=== PATIENT | male | born 1995 | race Two or more races ===

== ENCOUNTER 2025-03-26 10:25 | Outpatient (OUT) | payer MEDICAID, SELFPAY ==
--- OUTSIDE RECORDS SUMMARY | 2023-10-06 03:00 | XMS_ITS ---
Author Organization [employer] es Address [address] [place] [address] Care Team Providers Care Grinder Set Up Operator Centerless Name Role Phone Sonu Anthony Primary Care Provider [phone] Aparna Bundy Unavailable REASON FOR VISIT FILLING Encounters Encounter Location Date Provider Diagnosis [place] [address] [place] [address] 10/06/2023 Sonu Anthony Plan Of Treatment Next Appt Details Provider Name:Carmen Samuel , 07/14/2025 08:30:00 AM, [address], [place], [address], Progress Notes * CAMERON WESTFALLDOB:1995 (29 yo M)Acc No.[id number]:10/06/2023 Patient:?CAMERON WESTFALL :?MOOKIE WeaverOB:1995???Age:28 Y ???Sex:MaleDate:4Phone:[phone]:[address], [place]-[address] Subjective: * Chief Complaints: * F ILLING Billing Information: * Procedure Codes: * Electronic signature of Sonu Anthony DDS on 03/26/2025 at 10:32 AM ESTSign off status: Pending * Provider: July Anthony DDS Date: 0 10/06/2023 Generated for Printing/Faxing/eTransmitting on:?03/26/2025 10:32 AM EST
--- OUTSIDE RECORDS SUMMARY | 2024-04-16 03:30 | XMS_ITS ---
Author Organization [facility] Address [address] [place] [address] Care Team Providers Care Vp Foundation Name Role Phone Sonu Anthony Primary Care Provider Aparna Bundy Unavailable [phone] JimmieCarmen Unavailable [phone] REASON FOR VISIT PROPHY Encounters Encounter Location Date Provider Diagnosis [facility] [address] [place] [address] 04/16/2024 Carmen Samuel Acute gingivitis, plaque induced K05.00 Assessments Encounter Date Diagnosis (ICD Code) Assessment Notes Treatment Notes Treatment Clinical Notes Section Notes 04/16/2024 Acute gingivitis, plaque induced (ICD-10 - K05.00) Plan Of Treatment Next Appt Details Provider Name:Carmen Samuel , 07/14/2025 08:30:00 AM, [address], [place], [address], Progress Notes * CAMERON WESTFALLDOB:1995 (29 yo M)Acc No.[id number]:04/16/2024 Patient:?KHOI CAMERON :?Carmen SamuelDOB:1995???Age:29 Y???Sex:Male Date:04/16/2024Phone:[phone]:[address], [place] Pcp:Sonu Anthony Subjective: * Chief Complaints: * P ROPHY Objective: * Dental Examination/Plan : * Tooth / Surface Status Description Provider Date TPPROPHYLAXIS - TLRIIXD3204/16/2024 Assessment: * Assessment: 1.?Acute gingivitis, plaque induced - K05.00 (Primary)??? * Electronic signature of Carmen Samuel on 03/26/2025 at 10:33 AM ESTSign off status: Pending * Provider: Murphy Samuel Date: 0 04/16/2024 Generated for Printing/Faxing/eTransmitting on:?03/26/2025 10:33 AM EST
--- OUTSIDE RECORDS SUMMARY | 2024-11-29 10:50 | XMS_ITS ---
Author Organization [employer] es Address [address] [place] [address] Care Team Providers Care Photographic Laboratory Technician Name Role Phone Sonu Anthony Primary Care Provider Aparna Bundy Unavailable [phone] Azeb Palmer Unavailable [phone] REASON FOR VISIT 6 MONTHS Encounters Encounter Location Date Provider Diagnosis [place] [address] [facility] [place] [address] 11/29/2024 Azeb Palmer Plan Of Treatment Next Appt Details Provider Name:Carmen Samuel , 07/14/2025 08:30:00 AM, [address], [place], [address], Progress Notes * CAMERON WESTFALLDOB:1995 (29 yo M)Acc No.[id number]:11/29/2024 Patient:?KHOI CAMERON :?Azeb SantanaDOB:1995???Age:29 Y???Sex:Male Date:11/29/2024Phone:[phone]:[address], [place] Pcp:Sonu Anthony Subjective: * Chief Complaints: * 6 MONTHS * Electronic signature of Azeb Palmer on 03/26/2025 at 10:32 AM ESTSign off status: Pending * Provider: Marian Santana Date: 0 11/29/2024 Generated for Printing/Faxing/eTransmitting on:?03/26/2025 10:32 AM EST
--- OUTSIDE RECORDS SUMMARY | 2025-03-25 09:30 | XMS_ITS ---
Author Organization [facility] [place] Address [address] [place] [address] Care Team Providers Care Airport Guide Name Role Phone Chela Ramírez Primary Care Provider Allergies No Known Allergies Reason For Referral Reason left shoulder pain s [facility] Diagnosis 1 Left shoulder pain ( M25.512) Referral Organization [facility] Referring Provider First Name Chela Referring Provider Last Name Desiree Referring Provider Speciality Family [facility] iciroberto carlos Referred Provider Nish Watson Referred Provider Specialty Orthopedic S urgery Referral Priority Routine REASON FOR VISIT shoulder pain left- ongoing since June- anti inflamatories helped but then when trying to lift again still bothers it, Has not been lifting due to it- pressure on the area bothers it- lifting overhead also bothers it, Was sent for PT but patient doesn't have time for that with work Medications Medication SIG (Take, Route, Frequency, Duration) Notes Start Date End Date Status Diclofenac Sodium 75 MG 1 tablet as need ed Orally Twice a day; Duration: 30 days 5Active Social History Tobacco Use: Social History Observation Description Date Details (start date - stop date) Never Smoker NA - NA Tobacco Control (Standard) Question Answer Notes Tobacco use: Nonsmoker Vital Signs Blood pressure systolic 124 mm Hg 03/25/20 25 Blood pressure diastolic 70 mm Hg 025 Height 66 in 03/25/2025 Weight 184.2 lbs 03/25/2025 BMI 29.73 kg/m2 03/25/2025 Encounters Encounter Location Date Provider Diagnosis [facility] [address] [place] [address] 03/25/2025 Chela Ramírez Left shoulder pain M25.512 Assessments Encounter Date Diagnosis (ICD Code) Assessment Notes Treatment Notes Treatment Clinical Notes Section Notes 03/25/2025 Left shoulder pain (ICD-10 - M25 .512) Plan Of Treatment Medication Medication Name Sig Start Date Stop Date Notes Diclofenac Sodium 75 MG 1 tablet as need ed Orally Twice a day; Duration: 30 days 07/03/2024 Pending Test Test Name Order Date XR SHOULDER LT 2V or > 03/25/2025 Referrals Referral Date Details 03/25/2025 03/25/2025, left alonzo ulder pain since Spring, Nish Shirley Next Appt Details Follow Up: prn, Reason: Progress Notes * [place] WESTFALL ADOB:[birth year] (29 yo M)Acc No.[id number]:03/25/2025 UNLOCKED PROGRESS NOTE Progress Note Patient: [place] GLASS :?Chela Ramírez ([facility]), CNPDOB:1995 ???Age:29 Y???Sex:MaleDate:03/25/2025Phone:[phone]:[address] [place], [place]Check In:02:26 PM ESTCheck Out:02:53 PM EST Subjective: * Chief Complaints: * 1 . shoulder pain left- ongoing since June- anti inflamatories helped but then when trying to lift again still bothers it. 2. Has not been lifting due to it- pressure on the area bothers it- lifting overhead also bothers it. 3. Was sent for PT but patient doesn't have time for that with work. * HPI: ???General:? After previous pain and medication treatment had some relief After being seen here in June patient has not been lifting? Too much motion is painful? 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 Curling motions make it worse pain is at the head of the shoulder down the front and bertha the armpit ROM - not limited? Wants referral to ortho. * ROS: ???General/Constitutional:?Fever?denies.?Headache?denies.?Weight loss denies.?Ophthalmologic:?Discharge?denies.?Eye Pain?denies.?Itching and redness?denies.?ENT:?Nasal discharge?denies.?Nasal congestion?denies. Sore throat?denies.?Cardiovascular:?Chest tightness/ heavy pressure?denies.?Rapid heart rate?denies.?Swelling of extremities?denies.?Chest pain?denies.?Respiratory:?Productive cough?denies.?Chest pain?denies.?Cough?denies.?Shortness of breath?denies.?Wheezing?denies.?Gastrointestinal:?Abdominal pain?denies.?Constipation?denies.?Decreased appetite?denies.?Diarrhea?denies.?Nausea?denies.?Vomiting denies.?Genitourinary:?Urinary incontinence?denies.?Painful urination?denies.?Musculoskeletal:?Back pain?denies.?Neck pain?denies.?Muscle aches?denies.?Admits?Pain in shoulder(s),?affecting the left shoulder,admits.?Skin:?Rash?denies.?Skin lesion(s)?denies.? * Medical History: M edical History Verified. * Surgical History: S kin removal d/t weight loss . * Hospitalization/Major Diagno stic Procedure: D enies Past Hospitalization. * Family History: F ather: alive. M other: alive. B rother(s): alive. S ister(s): alive. 2 brother(s) , 1 sister(s) . . * Social History: ???Tobacco Use:?Tobacco Control (Standard)?Tobacco use:?Nonsmoker * Medications: D iscontinued Diclofenac Sodium 75 MG Tablet Delayed Release 1 tablet as needed Orally Twice a day , Medication List reviewed and reconciled with the patient * Allergies: N .K.D.A. Objective: * Vitals: W t:184.2lbs, Ht: 66 in, BP:124/70mm Hg, BMI:29.73Index, Ht-cm: 167.64 cm, Wt-k.55 kg. * Examination: ???General Examinations: ?GENERAL APPEARANCE:?alert and oriented,?in no acute distress.?EYES:?conjunctiva normal, sclera non-icteric.?EARS:?normal.?NOSE:?normal.?THROAT:?normal.?ABDOMEN:?normal.?BACK:?....?MUSCULOSKELETAL:?....?SKIN:?warm and dry, no suspicious lesions.?? ? Assessment: * Assessment: 1.?Left shoulder pain - M25.512 (Primary)??? Plan: * Treatment: Refill Diclofenac Sodium Tablet Delayed Release, 75 MG, 1 tablet as needed, Orally, Twice a day, 30days, 60 Tablet, Refills 1.?Imaging: XR SHOULDER LT 2V or >? Referral To:Nish Watson??Orthopedic Surgery ?Reason:left shoulder pain since Spring * Preventive Medicine: ??Screenings/Counseling:?BMI ACTION PLAN?Above Normal BMI Follow-up?Dietary management education, guidance, and counseling * Follow Up: p rn * * Electronic signature of Chela Ramírez HEALTHCARE ADVISORY SERVICES MANAGER, PIG BREEDER.PLATING EQUIPMENT [email or web address] on 03/26/2025 at 10:33 AM ESTSign off status: PendingVisit Status:?CHK (Check Out) * Provider: Gonzalo Ramírez ([facility]), PLATING EQUIPMENT TENDER Date: 1 Generated for Printing/Faxing/eTransmitting on:?03/26/2025 10:33 AM EST History and Physical Notes * HPI (History of Present Illness) CategorySub-CategoryDetailNotesCategory NotesGeneral After previous pain and medication treatment had some relief After being seen here in June patient has not been lifting Too much motion is painful 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 Consultation Request Notes Referral Date Referring Provider Referred Provider Devon vick 03/25/2025 Chela Ramírez Justin left should er pain since Spring
--- OUTSIDE RECORDS SUMMARY | 2025-03-26 10:32 | XMS_ITS | Clinical Summary ---
Author Organization [facility] Address [address] [place] [address] Care Team Providers Care Campus Coordinator Name Role Phone Unavailable Primary Care Provider Unavailabl e Social History Tobacco UseTypesPacks/DayYears UsedDateSmoking Tobacco: Never AssessedSex and Gender InformationValueDate RecordedSex Assigned at BirthNot on fileLegal Sex Male06/08/2022 8:21 PM EDTGender IdentityNot on fileSexual OrientationNot on file Last Filed Vital Signs Vital SignReadingTime TakenCommentsBlood Twaweoao588/8206/21/2017 12:00 PM EDT Pulse--Temperature--Respiratory Rate--Oxygen Saturation--Inhaled Oxygen Concentration--Asmtkk416 kg (250 lb)06/21/2017 12:00 PM NCKKwwgea763.6 cm (5' 6 )06/21/2017 12:00 PM EDTBody Mass Index40.35006/21/2017 12:00 PM EDT Plan of Treatment Not on file
--- OUTSIDE RECORDS SUMMARY | 2025-03-26 10:33 | XMS_ITS | Patient Health Record ---
Author Organization [facility] Address [address] [place] [address] Care Team Providers Care Doctor Of Optometry Name Role Phone Demetriaivet Sonu Primary Care Provider Aparna Bundy Unavailable [phone] Carmen Samuel Unavailable [phone] Azeb Palmer Unavailable [phone] Viviana Jim Unavailable [phone] Reason For Referral No Information Encounters Encounter Location Date Provider Diagnosis [facility] [address] [place] [address] 01/24/2025 Viviana Jim [facility] [place] [address]/24/2025 Carmen JimmieAcute gingivitis, plaque induced K05.00[facility] [address] [place] [address]Lizbethgibsoniesha JimmieAcute gingivitis, plaque induced K05.00 ; Other dental procedure status Z98.818 ; Encounter for dental examination and cleaning with abnormal findings Z01.21 ; Necrosis of pulp K04.1 and Dental caries on pit and fissure surface penetrating into dentin K02.52 Assessments Encounter Date Diagnosis (ICD Code) Assessment Notes Treatment Notes Treatment Clinical Notes Section Notes 05/20/2024 Acute gingivitis, plaque induced (ICD-10 - K05.00) 11/18/2024ute gingivitis, plaque induced (ICD-10 - K05.00)11/18/2024Other dental procedure status (ICD-10 - Z98.818)11/18/2024Encounter for dental examination and cleaning with abnormal findings (ICD-10 - Z01.21)11/18/2024 Necrosis of pulp (ICD-10 - K04.1)11/18/2024Dental caries on pit and fissure surface penetrating into dentin (ICD-10 - K02.52) Plan Of Treatment Next Appt Details Provider Name:Carmen Samuel , 07/14/2025 08:30:00 AM, [address], [place], [address], Insurance Providers Payer Name Payer Address Payer Phone Subscriber Number Group Number Insured Name Patient Relationship to Insured Coverage Start Date Coverage End Date Dental [employer] DQ [address] [address] [place] [phone] [id number], [id number] - patient is the [id number] 2022ental [employer] [facility] HumanaPO [address] [place] [id number] Candie WESTFALL - patient is the [id number] 2022ental [employer] DQ Terminated [address] [place] [id number] Candie WESTFALL - patient is the rdivctx56ental Wrap [facility] [employer] BC[employer] Termed [address] [place] [phone] [id number], [id number] - patient is the [id number]
--- OUTSIDE RECORDS SUMMARY | 2025-03-26 10:33 | XMS_ITS | Patient Health Record ---
Author Organization [facility] [place] Address [address] [place] [address] Care Team Providers Care Hedis Review Nurse Name Role Phone Chela Ramírez Primary Care Provider Allergies No Known Allergies Reason For Referral Reason left shoulder pain s [facility] Diagnosis 1 Left shoulder pain ( M25.512) Referral Organization [facility] Referring Provider First Name Chela Referring Provider Last Name Desiree Referring Provider Speciality Family [facility] icine Referred Provider Nish Watson Referred Provider Specialty Orthopedic S urgery Referral Priority Routine Medications Medication SIG (Take, Route, Frequency, Duration) Notes Start Date End Date Status Diclofenac Sodium 75 MG 1 tablet as need ed Orally Twice a day; Duration: 30 days 5Active Social History Tobacco Use: Social History Observation Description Date Details (start date - stop date) Never Smoker NA - NA Tobacco Control (Standard) Question Answer Notes Tobacco use: Nonsmoker AUDIT-C (Standard) Question Answer Notes Did you have a drink containing alcohol in the p ast year? No Onxcuz6VbvkdjtwszqamrEaibdbru Vital Signs Blood pressure diastolic 70 mm Hg 03/25/2025 Jtqgoz02 in03/25/2025lood pressure adouqjfx034 mm Hg03/25/20253748Hmsyao972.2 lbs 03/25/2025BMI29.73 kg/m203/25/2025 Encounters Encounter Location Date Provider Diagnosis [facility] [address] [place] [address] 03/25/2025 Chela Ramírez Left shoulder pain M25.512 [facility] [address] [place] [address] 07/03/2024 Chela Ramírez Right shoulder pain M25.511 Assessments Encounter Date Diagnosis (ICD Code) Assessment Notes Treatment Notes Treatment Clinical Notes Section Notes 07/03/2024 Right shoulder pain (ICD-10 - M2 5.511) rest heat or ice fu if not improving 03/25/2025Left shoulder pain (ICD-10 - M25.512) Plan Of Treatment Pending Test Test Name Order Date XR SHOULDER LT 2V or > 03/25/2025 Insurance Providers Payer Name Payer Address Payer Phone Subscriber Number Group Number Insured Name Patient Relationship to Insured Coverage Start Date Coverage End Date [employer] [place] [address] [address] [place] [address] [id number] Johanna Colon - patient is the insured Medical (General) History Surgical History Surgery Date(Month/Year) Skin removal d/t weight loss
--- NOTE | 2025-03-26 10:38 | XR_ITS ---
The [place] [id number] Patient Name: CAMERON WESTFALL MRN: [id number] date: 1995 Sex: M Assigned Patient Location: [facility] Current Patient Location: [facility] Accession/Order Number: [id number] Exam Date: 03/26/2025 10:48 Report Date: 03/26/2025 11:47 At the request of: DELVIS HOLLINGSWORTH Procedure: XR shoulder LT min 2V LEFT SHOULDER - 3 views CLINICAL HISTORY: Left Shoulder Pain for several months, greater anteriorly. No reported injury. COMPARISON: None AP, Y and Grashey views were obtained. There is no evidence of fracture or dislocation. There are no significant soft tissue abnormalities. XR/XR shoulder LT min 2V IMPRESSION: NO ACUTE BONY FINDINGS. Impression dictated by: Meri Gross M.D. 03/26/2025 11:47 AM Dictation Location: [place] [address] Electronically authenticated by: [id number] Y Date: 03/26/2025 11:47
== END 2025-03-26 10:26 | disposition home or self-care (01) ==
LOC: RAD 10:29
PROVIDERS: PCP Nurse Practitioner Family; Visit Provider Nurse Practitioner Family
DX: M25.512 Pain in left shoulder (principal)
CPT/HCPCS: 73030